=== PATIENT | male | born 1960 | race Hispanic/Latino ===

== ENCOUNTER 2018-09-24 11:06 | Emergency (ER) | payer OTHER ==
[2018-09-24 11:09] VITALS: BP 154/91
--- NOTE | 2018-09-24 11:13 | Event Note ---
ED Screening Note Date of service: 09/24/18 Time: 11:12 ED Screening Note: fall yesterday c/o back pain and rt elbow pain. This initial assessment/diagnostic orders/clinical plan/treatment(s) is/are subject to change based on patients health status, clinical progression and re- assessment by fellow clinical providers in the ED. Further treatment and workup at subsequent clinical providers discretion. Patient/guardian urged not to elope from the ED as their condition may be serious if not clinically assessed and managed. Initial orders include:
--- NOTE | 2018-09-24 12:26 | XRay Report ---
Right wrist 3 views 1142 INDICATION: Fall, wrist pain Tiny calcific density dorsal to the mid carpal row on lateral view only may be a small avulsion fragm ent, possibly from the triquetrum. No other fractures are seen. No dislocation is noted. Right elbow 3 views 1144 INDICATION: Fall, elbow pain A fracture is seen through the midportion of the head of the radius without significant angulation or displacement. Moderate joint effusion is seen. No other fractures noted. No dislocation is seen. Lumbar spine 3 views 1136 INDICATION: Fall, back pain Diffuse mild degenerative changes are seen. Mild disc space narrowing is noted at L5-S1. No fractures or subluxations are seen. Slight scoliosis is noted. IMPRESSION: 1. Radial head fracture 2. Probable minimal triquetral dorsal avulsion Signer Name: Chetan Taylor MD Signed: 09/24/2018 12:22 PM Workstation Name: [id number]
[2018-09-24] MEDS ORDERED: BOOSTRIX IM ONE (12:46)
--- NOTE | 2018-09-24 12:46 | Emergency Department Report ---
HPI - General Chief Complaint: Fall Time Seen by Provider: 09/24/18 12:19 - HPI HPI: 58-year-old male presents to the emergency department with a complaint of some wrist pain, right elbow pain and some upper right back pain after having a fall last night. The patient admits that he was slightly inebriated and was going down a steep hill on a concrete driveway when he lost his balance and tumbled forward. He denies hitting his head or any loss of consciousness. He denies any past medical history. He is a tobacco smoker. He has not taken anything for his symptoms prior to arrival. He has a primary care physician but has not seen them regarding his symptoms. ED Past Medical Hx - Past Medical History Previous Medical History?: No - Surgical History Past Surgical History?: No - Social History Smoking Status: Current Every Day Smoker Substance Use Type: Alcohol ED Review of Systems ROS: Stated complaint: RT HAND INJURY Other details as noted in HPI Comment: All other systems reviewed and negative Musculoskeletal: back pain, joint swelling, arthralgia, myalgia Skin: denies: rash, change in color Neurological: denies: headache, numbness, paresthesias Physical Exam - Physical Exam Vital Signs: Vital Signs 09/24/18 11:08 Temperature 98.2 F Pulse Rate 111 H Respiratory 16 Rate Blood Pressure 154/91 O2 Sat by Pulse 99 Oximetry Physical Exam: GENERAL: The patient is well-developed well-nourished. HENT: Normocephalic. Atraumatic. Patient has moist mucous membranes. EYES: Extraocular motions are intact. Pupils equal reactive to light bilaterally. NECK: Supple. Trachea is midline. CHEST/LUNGS: Clear to auscultation. There is no respiratory distress noted. HEART/CARDIOVASCULAR: Regular. There is no tachycardia. There is no murmur. ABDOMEN: There is no abdominal distention. SKIN: Mild swelling to the right elbow. There is an abrasion to the right elbow. NEURO: The patient is awake, alert, and oriented. The patient is cooperative. The patient has no focal neurologic deficits. The patient has normal speech. MUSCULOSKELETAL: Tenderness to palpation to the right wrist and elbow. Radial pulses +2 over 4 and capillary refill less than 2 seconds to the affected right upper extremity. ED Course Vital Signs 09/24/18 11:08 Temperature 98.2 F Pulse Rate 111 H Respiratory 16 Rate Blood Pressure 154/91 O2 Sat by Pulse 99 Oximetry ED Medical Decision Making - Radiology Data Radiology results: report reviewed Right wrist 3 views 1142 INDICATION: Fall, wrist pain Tiny calcific density dorsal to the mid carpal row on lateral view only may be a small avulsion fragment, possibly from the triquetrum. No other fractures are seen. No dislocation is noted. Right elbow 3 views 1144 INDICATION: Fall, elbow pain A fracture is seen through the midportion of the head of the radius without significant angulation or displacement. Moderate joint effusion is seen. No other fractures noted. No dislocation is seen. Lumbar spine 3 views 1136 INDICATION: Fall, back pain Diffuse mild degenerative changes are seen. Mild disc space narrowing is noted at L5-S1. No fractures or subluxations are seen. Slight scoliosis is noted. IMPRESSION: 1. Radial head fracture 2. Probable minimal triquetral dorsal avulsion - Medical Decision Making Patient presents after having a fall last night. He complains of some right elbow and right wrist pain as well as some back pain. X-ray showed a right radial head fracture and a small triquetrum avulsion fracture. No fracture or subluxation to the spine. The patient was placed in a long-arm posterior right upper extremity splint and in a sling. He was given a referral for 2 different orthopedic groups. He will return to the emergency Department with any worsening of his symptoms or any acute distress. The patient says that he has pain medication at home he can take. - Differential Diagnosis fracture, subluxation, contusion, sprain, strain Critical Care Time: No Critical care attestation.: If time is entered above; I have spent that time in minutes in the direct care of this critically ill patient, excluding procedure time. ED Disposition Clinical Impression: Radial head fracture, closed Qualifiers: Encounter type: initial encounter Fracture alignment: nondisplaced Laterality: right Qualified Code(s): S52.124A - Nondisplaced fracture of head of right radius, initial encounter for closed fracture Triquetral fracture Qualifiers: Encounter type: initial encounter Fracture type: closed Fracture alignment: displaced Laterality: right Qualified Code(s): S62.111A - Displaced fracture of triquetrum [cuneiform] bone, right wrist, initial encounter for closed fracture Back pain Qualifiers: Back pain location: thoracic back pain Chronicity: acute Back pain laterality: right Qualified Code(s): M54.6 - Pain in thoracic spine Fall Qualifiers: Encounter type: initial encounter Qualified Code(s): W19.XXXA - Unspecified fall, initial encounter Disposition: TO HOME OR SELFCARE Is pt being admited?: No Condition: Stable Instructions: Elbow Fracture in Adults (ED), Wrist Fracture in Adults (ED), Back Pain (ED), Fall Prevention (ED) Additional Instructions: Please follow-up with your primary care physician. I have given you a referral for 2 different local orthopedic groups, Dr. Still and [facility], to follow up regarding your radial head fracture of the elbow and wrist fracture. Remain in the splint until follow-up with the orthopedist. Return to the emergency Department with any worsening of your symptoms or any acute distress. Referrals: SHE STILL MD [Staff Physician] - 2-3 Days [facility] [Provider Group] - 2-3 Days Forms: Work/School Release Form(ED) Time of Disposition: 13:05
== END 2018-09-24 13:33 | disposition home or self-care (01) ==
LOC: ED 11:06
DX: S52.124A Nondisplaced fracture of head of right radius, initial encounter for closed fracture (principal); S62.111A Displaced fracture of triquetrum [cuneiform] bone, right wrist, initial encounter for closed fracture; M54.6 Pain in thoracic spine; F17.200 Nicotine dependence, unspecified, uncomplicated; Z88.0 Allergy status to penicillin; W18.30XA Fall on same level, unspecified, initial encounter; Y93.01 Activity, walking, marching and hiking; Y92.89 Other specified places as the place of occurrence of the external cause; Y99.8 Other external cause status
CPT/HCPCS: 72100; 90471; 90715